=== PATIENT | female | born 1985 | race Caucasian/White ===

== ENCOUNTER 2019-07-11 00:45 | Outpatient (CLI) | payer OTHER, SELFPAY | END 2019-07-11 00:46 | disposition home or self-care (01) | LOC: ANHCOVIDDT 00:45 | PROVIDERS: Visit Provider Obstetrics & Gynecology | DX: Z01.818 Encounter for other preprocedural examination (principal); Z11.59 Encounter for screening for other viral diseases | CPT/HCPCS: 87635; C9803; U0003 ==

== ENCOUNTER 2019-07-14 00:56 | Day surgery (SDC) | payer OTHER, SELFPAY ==
[2019-07-10 16:17] VITALS: BMI 35.2
[2019-07-14] VITALS (11 sets, daily range): BP systolic 105–127; BP diastolic 53–92; PULSE 54–75; RESP 12–25; TEMP 36.4; O2SAT 98–100
[2019-07-14] MEDS: LACTATED RINGERS 1,000 ML 30 ML IV CONT ×2 (10:07→11:46)
--- NOTE | 2019-07-14 10:12 | WPDANESEPPF ---
Anes - Initial Pre Proc Eval Procedure: Operation Date: 07/14/19 12:00 Proposed Procedures p Diagnostic Laparoscopy - Jaymie Levine MD Date/Time: 07/14/19 10:12 Surgeon: Jaymie Levine MD Pre Op Diagnosis: Pelvic Pain Patient Data Age: 34 Gender: F Height: 5 ft 9 in Weight: 107.6 kg Allergies Allergy/AdvReac Type Severity Reaction Status Date / Time levofloxacin [From Levaquin] Allergy Mild Rash Verified 07/14/19 09:46 Home Medications Medication Instructions Recorded Confirmed Type albuterol sulfate 2 puff INHALATION QID PRN 07/10/19 07/14/19 History ibuprofen 600 mg PO Q6-8H PRN 07/14/19 07/14/19 History Patient hx anesthesia problems: none Family hx anesthesia problems: none [facility] Past Medical History Medical History (Updated 07/14/19 @ 10:15 by Evgeny Delgado MD) Asthma GERD (gastroesophageal reflux disease) Obesity Surgical History Surgical History (Updated 07/14/19 @ 10:15 by Evgeny Delgado MD) History of cholecystectomy History of knee surgery Social History Social History (Updated 07/14/19 @ 10:16 by Evgeny Delgado MD) Smoking status: Current every day smoker Tobacco type: cigarettes Anes - Eval Final PreProcedure Day of Procedure 07/14/19 10:12 Patient weight: obese Heart: regular rate and rhythm Lungs: clear to auscultation Airway: Mallampati scale class II and special considerations poor dentition Neurological: alert and oriented Last oral intake: >/= 8 hours ASA classification: II Emergent: no Anesthetic plan: proceed Anesthesia type and monitoring: general ETT and standard monitoring Informed Consent: The patient's anesthetic plan and its attendant risks and benefits were discussed with the patient/family/POA. Questions were solicited and answers provided to the satisfaction of the patient/family/POA.
--- NOTE | 2019-07-14 10:19 | WPDHPUPDATE1 ---
History and Physical Update Update Date/Time: 07/14/19 10:19 History and Physical has been reviewed, including an updated exam of the patient. There are NO changes in the patient's condition. Risks, benefits, and alternatives have been discussed and questions answered. Patient agrees to proceed with procedure.
--- NOTE | 2019-07-14 11:28 | PM.PROC ---
Procedure Note - Detailed Date of procedure: 07/14/19 Pre-op diagnosis: Pelvic Pain Post-op diagnosis: other (Ovarian torsion) Procedure performed: Right salpingo-oophorectomy, adhesiolysis Description of procedure: The patient was taken the operating room. She was prepped and draped in the dorsal lithotomy position after induction of general anesthesia. A 5 mm left upper quadrant incision was made in the abdominal skin with a scalpel. A 5 mm trocar was inserted the intra-abdominal cavity under direct visualization of the scope. A 11 mm left lower quadrant incision was made with the scalp on the abdominal skin and a 5 mm trocar was inserted the intra-abdominal cavity under direct visualization of the scope. A 5 mm infraumbilical incision was made with scalpel and a 5 mm trocar was inserted into the intra-abdominal cavity under direct visualization of the scope. On the right side the pelvis the ureter was identified. The infundibulopelvic ligament was isolated. It was dissected clearly away from the ureter. The infundibulopelvic ligaments cauterized and transected with LigaSure. The para ovarian tissue was cauterized transected with LigaSure. Moving medially, with the ureter in site, the paraovarian paratubal tissue was cauterized in a stepwise fashion. It was cauterized and transected with LigaSure. At the cornual area of the uterus and fallopian tube the fallopian tube was transected and cauterized with LigaSure. The suspensory ligament the ovary was cauterized transected with LigaSure. The ovary and fallopian tube were amputated and placed in an endobag and taken at the left lower quadrant trocar site. Some adhesion lysis was performed around the infundibulopelvic ligament on the left side. There was adhesions in this area as well. The pelvis was irrigated with copious amounts of normal saline. The pneumoperitoneum was reduced. The trocars were removed. The patient was taken recovery room stable condition. Sponge lap and needle counts were correct x2. Anesthesia: GETA Surgeon: Jaymie Levine MD Estimated blood loss (mL): 20 Drains: No Packing: No Complications: No immediate complications Condition: stable Disposition: PACU Findings: Partial torsion of the right fallopian tube, ovary, and infundibulopelvic ligament. Adhesions from the pericolic fat in the sigmoid colon and the infundibulopelvic ligament on the left.
[2019-07-14] MEDS: HYDROMORPHONE HCL 1 MG/ML INJ 0.5 MG IV PUSH ×2 (12:33→12:38)
[2019-07-14] MEDS: MIDAZOLAM HCL 2 MG/2 ML VIAL IV PUSH (12:53)
[2019-07-14] MEDS: ONDANSETRON INJ 4 MG/2 ML VIAL IV PUSH (14:21)
--- NOTE | 2019-07-14 14:27 | SUR.PHASEII ---
1305 called and updated on pt condition
--- NOTE | 2019-07-14 14:29 | SUR.PHASEII ---
1428 called and updated
== END 2019-07-14 14:56 | disposition home or self-care (01) ==
PROVIDERS: PCP Physician Assistant Medical; Visit Provider Obstetrics & Gynecology
PROC: (CPT 49320; principal; 2019-07-14 12:00)
DX: N83.53 Torsion of ovary, ovarian pedicle and fallopian tube (principal); J45.909 Unspecified asthma, uncomplicated; K21.9 Gastro-esophageal reflux disease without esophagitis; E66.9 Obesity, unspecified; Z68.34 Body mass index [BMI] 34.0-34.9, adult; F17.210 Nicotine dependence, cigarettes, uncomplicated
CPT/HCPCS: 58661; 88305; 88307; A9270; J0131; J1100; J1170; J2001; J2250; J2405; J2704; J2710; J3010; J7030; J7120

== ENCOUNTER 2019-07-27 18:01 | Outpatient (CLI) | payer OTHER, SELFPAY ==
--- NOTE | ~2019-07-27 | CT_ITS ---
EXAMINATION: CT abdomen pelvis w con EXAM DATE: 07/27/2019 18:22 INDICATION: Right lower quadrant pain. History ovarian torsion. Surgery 2 weeks ago. TECHNIQUE: Spiral CT of the abdomen and pelvis was performed following intravenous injection of 100 m L Omnipaque 350. Axial, coronal and sagittal images were reviewed. The dose-length product (DLP) fo r this examination was 1217.47 mGy-cm. The exposure was tailored according to patient size (auto mA exposure control), and iterative reconstruction (ASIR) was used as additional dose reduction techniqu e. There is no prior study for comparison. FINDINGS: The liver, spleen, adrenal glands and pancreas are unremarkable. There are cholecystectomy clips. Portal and splenic veins are patent. Kidneys enhance symmetrically. There is no hydronephr osis. There is a 2 cm right renal cyst. The ureters are both well-visualized down to the bladder, no obstructing ureteral stones. The uterus is unremarkable. Several small physiologic cysts in the left ovary. Right ovary not definitively identified. The bladder is unremarkable. There is no retroperi toneal or pelvic lymphadenopathy. No abdominal wall hernias. The appendix is normal. The stomach and small bowel are unremarkable. There is expected amount of c olonic stool. There is mild scattered colonic diverticulosis. There is no adjacent inflammatory baldwin ge to suggest diverticulitis. The heart is normal in size. There are no pericardial or pleural effus ions. The lung bases are unremarkable. The bones are unremarkable. IMPRESSION: No obstructive nephropathy or acute intra-abdominal findings. Normal appendix. Reviewed, dictated and finalized at location A. IMPRESSION: No obstructive nephropathy or acute intra-abdominal findings. Jessika l appendix.
== END 2019-07-27 18:02 | disposition home or self-care (01) ==
LOC: ANHIMG 18:02
PROVIDERS: PCP Obstetrics & Gynecology; Visit Provider Obstetrics & Gynecology
DX: R10.31 Right lower quadrant pain (principal)
CPT/HCPCS: 74177; Q9967

== ENCOUNTER 2019-07-31 11:02 | Outpatient (CLI) | payer OTHER, SELFPAY ==
[2019-07-31 11:21] LABS: Basophils Percent Auto 0.4 % (0.2-1.2); Eosinophils Absolute Auto 0.2 K/mm3 (0-0.3); Eosinophils Percent Auto 2.4 % (0-4.4); Hematocrit 42.3 % (37.0-47.0); Hemoglobin 14.3 g/dL (12.0-15.0); Immature Granulocyte Absolute 0.05 K/mm3 (0.00-0.031); Immature Granulocyte Percent A 0.5 % (0-0.5); Lymphocytes Absolute Auto 2.91 K/mm3 (0.9-3.2); Lymphocytes Percent Auto 29.8 % (18.3-44.2); Mean Corpuscular HGB Conc 33.8 g/dl (32-36); Mean Corpuscular Hemoglobin 31.7 pg (26-34); Mean Corpuscular Volume 93.8 fl (80-100); Mean Platelet Volume 9.6 fl (7.4-10.4); Monocytes Absolute Auto 0.8 K/mm3 (0.1-0.6); Neutrophils Absolute Auto 5.8 K/mm3 (1.3-6.7); Neutrophils Percent Auto 58.9 % (45.5-73.1); Platelet Count Result 290 k/mm3 (150-375); Red Blood Count 4.51 M/mm3 (4.2-5.4); Red Cell Distribution Width 12.9 % (11.5-14.5); White Blood Count 9.8 K/mm3 (4.5-10.0)
[2019-07-31 11:33] LABS: Potassium 4.1 mmol/L (3.4-5.0)
[2019-07-31 12:07] LABS: Alanine Aminotransferase 24 U/L (4-35); Albumin Level 4.3 g/dL (3.5-5.1); Alkaline Phosphatase 73 U/L (38-126); Amylase 63 U/L (30-110); Aspartate Amino Transferase 23 U/L (14-36); Bilirubin,Total 0.4 mg/dL (0.2-1.3); Blood Urea Nitrogen 13 mg/dL (7-17); Calcium 8.8 mg/dL (8.4-10.2); Carbon Dioxide 23 mmol/L (22-30); Chloride 108 mmol/L (98-107); Estimated Glomerular Filt Rate > 60; Glucose 82 mg/dL (65-105); Lipase 148 U/L (23-300); Sodium 136 mmol/L (137-145)
== END 2019-07-31 11:03 | disposition home or self-care (01) ==
LOC: ANHLAB 11:02
PROVIDERS: Visit Provider Surgery
DX: R10.31 Right lower quadrant pain (principal)
CPT/HCPCS: 36415; 80053; 82150; 83690; 85025

== ENCOUNTER 2019-08-03 17:06 | Outpatient (CLI) | payer OTHER, SELFPAY | END 2019-08-03 17:07 | disposition home or self-care (01) | PROVIDERS: Visit Provider Surgery | DX: R10.31 Right lower quadrant pain (principal) | CPT/HCPCS: 87045; 87046; 87324; 87427; 89055 ==

== ENCOUNTER 2024-02-14 03:06 | Day surgery (SDC) | payer OTHER, SELFPAY ==
[2024-02-11 11:31] VITALS: BMI 41.4
--- NOTE | 2024-02-11 11:32 | PC.NURSE ---
Report to the Outpatient Waiting Room, entrance under the green pavilion located off [facility], at time _1000_ on date _[id number]_. Planned Procedure Time: _1200_.? Time changes happen often and if your time is changed the preop area will call you the afternoon before. - You and your visitor will be asked to self-screen and do not enter if you have any COVID symptoms. Please call surgeon if you need to reschedule. - A mask is optional within the hospital at this time. Patients may have clear liquids (water, carbonated beverages, clear teas, apple juice) until 3 hours prior to surgery with a maximum of 20 ounces. - No food from midnight until time of surgery and no smoking. This includes no chewing gum, candy or mints. Take only the following medications with a SIP of water on the morning of surgery: Albuterol if needed.____ DO NOT STOP ANY OF YOUR OTHER PRESCRIPTION MEDICATIONS PRIOR TO SURGERY EXCEPT THE FOLLOWING Medications to discontinue per physician None Date to take last dose Please no make-up, nail irish, hairspray, perfume, deodorant, or body powder the day of surgery.? No jewelry (including any body piercings) or valuables the day of surgery, leave them at home.? Please take a shower or bath the night before, or the morning of, surgery with an antibacterial soap.? Wear comfortable, loose fitting clothing.? - Jewelry must be removed prior to entering the operating room.? Rings and piercings that are not removed may be cut off. - The hospital will not accept responsibility for valuables.? - Please leave all valuables, including medications, at home the day of surgery. If you are going home after surgery, a licensed bus driver supervisor must drive you home.? - NO public transportation without another adult if you receive anesthesia. - We recommend that an adult stay with you for 24 hours following discharge. - We also recommend that you do not drive, make important decision, drink alcoholic beverages, or take any drugs that were not prescribed by your health care provider for at least 24 hours after your discharge time. Follow any additional instructions given to you from your surgeon. Telephone instructions given to _Va__and asked if any additional questions and then verbalized understanding. Patient advised to call surgeon office or pre surgery nurse liaison [phone] if any additional questions.
[2024-02-14 09:03] VITALS: BP 140/70; PULSE 85; RESP 20; TEMP 36.1; O2SAT 97
[2024-02-14] MEDS: LACTATED RINGERS 1,000 ML 30 ML IV CONT (09:50)
[2024-02-14] MEDS: ACETAMINOPHEN 500 MG TABLET 1000 MG PO (10:09)
--- NOTE | 2024-02-14 10:20 | P.PNAN_ITS ---
Anes - Initial Pre Proc Eval Procedure: Operation Date: 02/14/24 11:00 Proposed Procedures p Suction Dilation and Curettage - Richard Levine MD Date/Time: 02/14/24 10:20 Surgeon: Richard Levine MD Pre Op Diagnosis: Missed Ab Patient Data Age: 39 Gender: F Height: 1.75 m Weight: 127.3 kg Last Vital Signs Temp 36.1 C L 02/14/24 09:03 Pulse 85 02/14/24 09:03 Resp 20 02/14/24 09:03 BP 140/70 02/14/24 09:03 Pulse Ox 97 02/14/24 09:03 O2 Del Method Room Air 02/14/24 09:03 Allergies Allergy/AdvReac Type Severity Reaction Status Date / Time levofloxacin (From [employer]) Allergy Mild Rash Verified 02/14/24 09:48 Home Medications ?Medication ?Instructions ?Recorded ?Confirmed ?Type albuterol sulfate 90 mcg/actuation 2 puff inhalation QID PRN 07/10/19 02/14/24 History aerosol inhaler Shortness Of Breath Patient hx anesthesia problems: none Family hx anesthesia problems: none Results Review: All pre-operative results and documents have been reviewed as part of the pre- operative evaluation. [facility] Past Medical History Medical History Depressed GERD (gastroesophageal reflux disease) Asthma Obesity Surgical History Surgical History (Updated 07/04/23 @ 14:52 by Irina Carbone COUNT INCLUDES [facility]) History of salpingoophorectomy (07/14/19) right ovarian torsion History of knee surgery History of cholecystectomy Family History Family History Father Leukemia Mother Skin cancer Social History Social History Smoking packs per day: 1 Smoking cigarettes per day: 20.0 Years smoked: 17 Smoking pack-years: 17.00 Smoking status: Former smoker Tobacco type: cigarettes Smoking end date: 02/10/21 Alcohol intake: current Living arrangements: with family Occupation/Education: occupation Additional occupation/education comments: [employer] Spiritual care concerns: No Anes - Eval Final PreProcedure Day of Procedure 02/14/24 10:20 Patient weight: morbidly obese Heart: regular rate and rhythm Lungs: clear to auscultation Airway: Mallampati scale class II Neurological: alert and oriented Last oral intake: >/= 8 hours ASA classification: III Emergent: no Anesthetic plan: proceed Anesthesia type and monitoring: general GIVS and standard monitoring Results Review: All pre-operative results and documents have been reviewed as part of the pre- operative evaluation. Informed Consent: The patient's anesthetic plan and its attendant risks and benefits were discuss ed with the patient/family/POA. Questions were solicited and answers provided to the satisfaction of the patient/family/POA.
--- NOTE | 2024-02-14 11:00 | PM.OBTRLD ---
OB - Triage/Final Diagnosis Visit Information Comments/Additional reasons for admission: I have assessed the risk for this patient, Va Bahena, and determined that she would benefit from observation care. Evaluation Vital signs: Vital Signs - 24 hr 02/14/24 09:03 Temperature 97.0 F L Pulse Rate 85 Respiratory Rate 20 Blood Pressure 140/70 Pulse Oximetry 97 Oxygen Delivery Room Air
--- NOTE | 2024-02-14 11:11 | WPDHPUPDATE1 ---
History and Physical Update Update Date/Time: 02/14/24 11:11 History and Physical has been reviewed, including an updated exam of the patient. There are NO changes in the patient's condition. Risks, benefits, and alternatives have been discussed and questions answered. Patient agrees to proceed with procedure.
[2024-02-14] MEDS: LIDOCAINE 1% LOCAL INJ 10 ML VIAL INFILTRATE (11:25)
[2024-02-14 11:41] VITALS: BP 124/73; PULSE 87; RESP 16; O2SAT 97
--- NOTE | 2024-02-14 11:45 | P.OP_ITS ---
Procedure Note - Detailed Date of Procedure 02/14/24 Pre-op Diagnosis Missed Ab Post-op Diagnosis Same Procedure Performed Suction D&C Surgeon Richard Levine MD Anesthesia MAC Indications missed Findings normal-appearing vulva vagina and cervix to. Moderate amount of products conception within the uterus. 8 cm uterus Description of Procedure the patient was taken the operating room. She was prepped and draped in dorsal lithotomy position after induction of mac anesthesia. A speculum was placed in the vagina. Cervix grasped with tenaculum. The cervix was dilated to about 1 cm Using Brown dilators. A 8. [place] curved curette was used to perform suction D&C. The curette was introduced and vacuum was applied. The curette was removed over all surfaces of the intrauterine cavity multiple times. This was done until all the surfaces were clear and had the familiar grainy texture they can be felt through the instrument. A sharp curette was then used to curettage all the surfaces. The suction cup was then reapplied 1 more time to remove any debris. The instruments were removed. The speculum and tenaculum were removed. The patient tolerated the procedure well. She was taken recovery room stable condition. Estimated Blood Loss 50 Drains No Packing No Pathology Yes Complications No immediate complications Condition Stable Disposition PACU
[2024-02-14 12:14] VITALS: BP 132/55; PULSE 76; RESP 16; O2SAT 97
[2024-02-14] MEDS: oxyCODONE HCL (*CRX) 5 MG TAB IR PO (12:24)
[2024-02-14 12:43] VITALS: BP 130/60; PULSE 68; RESP 17
[2024-02-14 12:54] VITALS: BP 128/59; PULSE 67; RESP 16
[2024-02-14 13:20] VITALS: BP 112/58; PULSE 66; RESP 16
== END 2024-02-14 13:40 | disposition home or self-care (01) ==
PROVIDERS: PCP Physician Assistant; Visit Provider Obstetrics & Gynecology
PROC: (CPT 59820; principal; 2024-02-14 11:00)
DX: O02.1 Missed abortion (principal); J45.909 Unspecified asthma, uncomplicated; E28.2 Polycystic ovarian syndrome; K21.9 Gastro-esophageal reflux disease without esophagitis; F41.9 Anxiety disorder, unspecified; F32.A Depression, unspecified; Z79.51 Long term (current) use of inhaled steroids; Z98.890 Other specified postprocedural states; Z90.49 Acquired absence of other specified parts of digestive tract; Z87.891 Personal history of nicotine dependence; Z80.6 Family history of leukemia; Z84.0 Family history of diseases of the skin and subcutaneous tissue; Z80.3 Family history of malignant neoplasm of breast; Z80.41 Family history of malignant neoplasm of ovary; Z80.49 Family history of malignant neoplasm of other genital organs; Z80.1 Family history of malignant neoplasm of trachea, bronchus and lung
CPT/HCPCS: 59820; 36415; 85461; 86850; 86900; 86901; 88305; A9270; J1100; J2003; J2250; J2405; J2704; J3010; J7120